=== PATIENT | female | born 1990 | race Two or more races ===

== ENCOUNTER 2016-06-21 02:05 | Emergency (ER) | payer MEDICAID, OTHER ==
[2016-06-21] MEDS ORDERED: SULFAMETHOXAZOLE 800 MG/TRIMETHOPRIM 160 MG TABLET ONE ×2 (03:11)
== END 2016-06-21 03:51 | disposition home or self-care (01) ==
LOC: ED 02:05
DX: L05.01 Pilonidal cyst with abscess (principal); J45.909 Unspecified asthma, uncomplicated
CPT/HCPCS: 99282 ×2; 10080 ×2; A9270 ×2